=== PATIENT | female | born 1970 | race Two or more races ===

== ENCOUNTER → 2016-06-12 | Day surgery (SDC) | payer BC ==
[~2016-06-12] VITALS: Ht 149.9 cm; Wt 41.3 kg
[2016-06-12] VITALS (13 sets, daily range): BP systolic 104–139; BP diastolic 45–82
[~2016-06-12] MED LIST: Bacitracin 50000 Units Vial ONE; Bupivacaine w/Epi 0.25% 30ml Vial INJ ONE; DiphenhydrAMINE 50mg/ml Inj IVP PRN; Glycopyrrolate 0.2mg/ml 1ml Vial ONE; Hydromorphone 0.5mg/0.5ml inj IVP PRN; Ketorolac 30mg Inj IV PRN; Ketorolac 30mg Inj ONE; LR 1000ml 1,000 ML IVLG SCH; LR 1000ml ONE; Meperidine 25mg/ml Inj IV PRN; Metoclopramide 10mg/2ml Inj IVP PRN; Midazolam 2mg/2ml Inj ONE; NKM; NS Irrig 1000ml ONE; Neostigmine 1mg/ml 10ml Inj ONE; Propofol 10mg/ml 20ml IV ONE; Sterile Water Irrig 1000ml IRRIG ONE; Succinylcholine 20mg/ml 10ml vial ONE; Tylenol #3 tab (300mg/30mg) ORAL PRN; Zemuron 50mg/5ml Inj IV ONE; fentaNYL 100 mcg/2 mL IV ONE; fentaNYL 100 mcg/2 mL IV PRN
--- NOTE | 2016-06-12 07:20 | Pre-Procedure Note/Attestation ---
Pre-Procedure Note/Attestation Complete Prior to Procedure Procedure Narrative: repair of ventral epigastric hernia Indications for Procedure Pre-Operative Diagnosis: ventral epigastric hernia Attestation I attest that I discussed the nature of the procedure; its benefits; risks and complications; and alternatives (and the risks and benefits of such alternatives ), prior to the procedure, with the patient (or the patient's legal investment representative). I attest that, if there was a reasonable possibility of needing a blood transfusion, the patient (or the patient's legal investment representative) was given the [facility] standardized written summary, pursuant to the [place] Agustina Blood Safety Act ([place] Health and Safety Code # 1645, as amended). I attest that I re-evaluated the patient just prior to the surgery and that there has been no change in the patient's H&P, except as documented below: AXEL BARRIOS Jun 12, 2016 07:20
--- NOTE | 2016-06-12 08:02 | Anethesia Preoperative Eval ---
Anesthesia Pre-op PMH/ROS General Date of Evaluation: Jun 12, 2016 Time of Evaluation: 07:22 Anesthesiologist: Jose Rafael ASA Score: ASA 2 Mallampati Score Class I : Soft palate, uvula, fauces, pillars visible Class II: Soft palate, uvula, fauces visible Class III: Soft palate, base of uvula visible Class IV: Only hard plate visible Mallampati Classification: Class II Surgeon: Monty Diagnosis: Venyral hernia Surgical Procedure: Ventral hernia repair Anesthesia History: none Family History: no anesthesia problems Allergies: Coded Allergies: No Known Allergies (Unverified , 06/11/16) Medications: see eMAR Past Medical History Cardiovascular: Denies: CAD, HTN, AR, arrhythmia, other, valve dz Pulmonary: Denies: COPD, HÉCTOR, asthma, other Gastrointestinal/Genitourinary: Reports: GERD, Denies: CRI, ESRD, other Neurologic/Psychiatric: Denies: CVA, TIA, dementia, depression/anxiety, other Endocrine: Denies: DM, hypothyroidism, other, steroids HEENT: Denies: [place] (L), [place] (R), cataract (L), cataract (R), glaucoma, other Hematology/Immune: Denies: DVT, anemia, bleeding disorder, other Musculoskeletal/Integumentary: Denies: DDD, DJD, OA, RA, edema, other PMH Narrative: as above PSxH Narrative: Anesthesia Pre-op Phys. Exam Physician Exam Last Vital Signs Date Time Temp Pulse Resp B/P Pulse Ox O2 Delivery O2 Flow Rate FiO2 06/12/16 06:03 98.2 79 20 139/82 98 Room Air Constitutional: NAD Neurologic: CN 2-12 intact Cardiovascular: RRR, no M/R/G Respiratory: CTA Gastrointestinal: S/NT/ND Airway Exam Mallampati Score: Class II MO: full Neck: flexible ROM: full Teeth: intact Dentures: no lower, no upper Anesthesia Pre-op A/P Labs see chart Urine Test Test 06/12/16 05:30 Urine HCG, Qualitative Negative Studies Pre-op Studies: EKG - NSR Risk Assessment & Plan Assessment: ASA 2 Plan: GA wit ETT Status Change Before Surgery: No Pre-Antibiotics Drug: Ancef 1 gr. Given Within 1 Hr of Incision: Yes Time Given: 07:52 LUCRECIA BURNETT M.D. Jun 12, 2016 08:02
--- NOTE | 2016-06-12 08:11 | Brief Operative Note ---
Immediate Post Operative Note Operative Note Pre-op Diagnosis: ventral epigastric hernia Post-op Diagnosis: same Surgeon: gianna Anesthesiologist: kofi Anesthesia: general Specimen: yes Complications: none Condition: stable Estimated Blood Loss: minimal Drains: none Implant(s) used?: No AXEL BARRIOS Jun 12, 2016 08:11
--- NOTE | 2016-06-12 09:34 | Immediate Post-Op Evaluation ---
Immediate Post-Op Evalulation Immediate Post-Op Evalulation Procedure: Ventral hernia repair Date of Evaluation: Jun 12, 2016 Time of Evaluation: 08:27 IV Fluids: 800 Blood Products: none Estimated Blood Loss: min Urinary Output: none Blood Pressure Systolic: 116 Blood Pressure Diastolic: 62 Pulse Rate: 78 Respiratory Rate: 20 O2 Sat by Pulse Oximetry: 98 Temperature (Fahrenheit): 98.2 Pain Score (1-10): 1 Nausea: No Vomiting: No Patient Status: reacts, patent, extubated, none Hydration Status: adequate LUCRECIA BURNETT M.D. Jun 12, 2016 09:34
--- NOTE | 2016-06-12 09:46 | 48 Hour Post Anesthesia Eval ---
Post Anesthesia Evaluation Procedure: Ventral hernia repair Date of Evaluation: Jun 12, 2016 Time of Evaluation: 09:44 Blood Pressure Systolic: 112 0: 74 Pulse Rate: 78 Respiratory Rate: 18 Temperature (Fahrenheit): 97.5 O2 Sat by Pulse Oximetry: 98 Airway: patent Nausea: No Vomiting: No Pain Intensity: 2 Hydration Status: adequate Cardiopulmonary Status: stable Mental Status/LOC: patient returned to baseline Follow-up Care/Observations: n/a Post-Anesthesia Complications: none Follow-up care needed: ready to discharge LUCRECIA BURNETT M.D. Jun 12, 2016 09:45
--- NOTE | 2016-06-12 10:18 | Operative Note - Dictated ---
DATE OF OPERATION: 06/12/2016 SURGEON: Conrad Millan M.D. [employer] MANAGER: None. ANESTHESIOLOGIST: Cali Mantilla M.D. ANESTHESIA: General endotracheal tube. PREOPERATIVE DIAGNOSIS: Ventral epigastric hernia. POSTOPERATIVE DIAGNOSIS: Ventral epigastric hernia. NAME OF OPERATION: Repair of ventral epigastric hernia with suture (no mesh). FINDINGS AND INDICATIONS: The patient is a thin [place] middle-aged female with the history of having a progressively enlarging and painful ventral epigastric hernia between the umbilicus and the xiphoid. Because of that she came to see me and I advised her to undergo repair. At surgery indeed a small defect was found with a ____small__sac with__ __ fibro fatty contents, which were removed and sent to pathology. The edges were cleansed and the wound approximated with the Ethibond sutures. DESCRIPTION OF PROCEDURE: With the patient lying supine on the operating table, under general anesthesia with the entire abdominal region prepped and draped in usual sterile fashion with Betadine, a vertical incision was made over the soft tissue mass. Subcutaneous tissues were divided, the hernia sac was then encountered and dissected free all the way around to the fascia and then it was amputated flush to the perineum. The area was irrigated. The edges perineum were cleansed and the 0 Ethibond interrupted sutures were used to approximate the edges in three areas with excellent closure. The patient had decent tissue to be able to approximate and the orifice was too small to place the mesh in. The procedure was done uneventfully. Hemostasis was adequate. The edges of the subcutaneous tissues were approximated with 3-0 Vicryl suture and the skin with 4-0 Vicryl subcuticular sutures and Steri-Strips. Marcaine 0.5% with epinephrine 20 mL was injected for long-acting local anesthetic. The patient tolerated the procedure well. Estimated blood loss was less than 5 mL. The sponge and needle counts were correct. She went to the recovery room in stable condition. Conrad Millan M.D. DR: MABEL JOB#: [id number] CC: CHRIS
== END | disposition home or self-care (01) ==
LOC: SUR 05:23
DX: K43.9 Ventral hernia without obstruction or gangrene (principal); K21.9 Gastro-esophageal reflux disease without esophagitis
CPT/HCPCS: 49560; 81025; J0330; J0690; J1885; J2250; J2405; J2704; J2710; J3010; J7120; 94003; 94150